=== PATIENT | male | born 1960 | race Caucasian/White ===

== ENCOUNTER 2017-01-10 10:32 | Day surgery (SDC) | payer OTHER ==
[~2017-01-10] VITALS: Ht 182.9 cm; Wt 89.4 kg
[~2017-01-10 10:32] MED LIST: ALPRAZOLAM1 MG PO; ATARAX,VISTARIL25 MG PO; ATENOLOL50 MG PO; AZELASTINE HCL6 ML BOTH EYES; COZAAR100 MG PO; HYDROCODON-ACE1 EAC7 PO; INDOCIN25 MG PO; LISINOPRIL10 MG PO; MEN'S MULTI-VI1 EACH PO; METFORMIN HCL500 MG PO; PEN-VEE K,VEET500 MG PO; PERCOCET 5/31 TABLET PO; PRAVASTATIN SOD40 MG PO; PREDNISONE20 MG PO; VENLAFAXINE HC150 M1 PO; VENLAFAXINE HCL75 M3 PO; XANAX1 MG PO
[2017-01-10 11:00] LABS: POINT-OF-CARE METER ID UU14174212
== END 2017-01-10 11:57 | disposition home or self-care (01) ==
LOC: PAIN 10:32 → SDC 11:30 → PAIN 11:30
PROVIDERS: Anesthesiology Pain Medicine
DX: M25.551 Pain in right hip (principal); M51.36 Other intervertebral disc degeneration, lumbar region; M47.816 Spondylosis without myelopathy or radiculopathy, lumbar region; M54.5 Low back pain; M46.1 Sacroiliitis, not elsewhere classified; M48.06 Spinal stenosis, lumbar region; M54.2 Cervicalgia; E78.5 Hyperlipidemia, unspecified; I10 Essential (primary) hypertension; E11.9 Type 2 diabetes mellitus without complications; F17.210 Nicotine dependence, cigarettes, uncomplicated; Z79.84 Long term (current) use of oral hypoglycemic drugs; Z79.899 Other long term (current) drug therapy
CPT/HCPCS: 82948; J1030; J2250; J3010; S0020

== ENCOUNTER 2018-02-13 13:11 | Day surgery (SDC) | payer OTHER ==
[~2018-02-13] VITALS: Ht 188 cm; Wt 88.5 kg
[~2018-02-13 13:11] MED LIST changes: +ATENOLOL100 MG PO
== END 2018-02-13 14:50 | disposition home or self-care (01) ==
LOC: PAIN 13:11
PROVIDERS: Anesthesiology Pain Medicine
DX: M47.816 Spondylosis without myelopathy or radiculopathy, lumbar region (principal); M46.1 Sacroiliitis, not elsewhere classified; M79.1 Myalgia; M48.061 Spinal stenosis, lumbar region without neurogenic claudication; M51.36 Other intervertebral disc degeneration, lumbar region; J30.9 Allergic rhinitis, unspecified; F17.200 Nicotine dependence, unspecified, uncomplicated; Z88.8 Allergy status to other drugs, medicaments and biological substances
CPT/HCPCS: 82948; J1030; J2250; S0020

== ENCOUNTER 2018-02-20 11:02 | Day surgery (SDC) | payer OTHER ==
[~2018-02-20] VITALS: Ht 188 cm; Wt 88.5 kg
== END 2018-02-20 12:35 | disposition home or self-care (01) ==
LOC: PAIN 11:02
PROVIDERS: Anesthesiology Pain Medicine
DX: M47.816 Spondylosis without myelopathy or radiculopathy, lumbar region (principal); M46.1 Sacroiliitis, not elsewhere classified; M79.1 Myalgia; M48.061 Spinal stenosis, lumbar region without neurogenic claudication; M51.36 Other intervertebral disc degeneration, lumbar region; F17.200 Nicotine dependence, unspecified, uncomplicated
CPT/HCPCS: 82948; J1030; J2250; S0020